=== PATIENT | male | born 1995 | race African-American/Black ===

== ENCOUNTER 2016-12-15 13:22 | Emergency (ER) | payer SELFPAY ==
[2016-12-15 13:30] VITALS: BP 122/83; PULSE 70; TEMP 98; BMI 27.6
[2016-12-15] MEDS ORDERED: DIPHTH,PERTUSS(ACELL),TET 0.5 ML DISP.SYRIN IM ONE (13:59)
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
[2016-12-15] MEDS ORDERED: HEPATITIS B IMMUNE GLOBULIN 5 ML VIAL IM ONE (14:26)
== END 2016-12-15 14:55 | disposition home or self-care (01) ==
LOC: JERFT 13:22
PROC: 3E0234Z Introduction of Serum, Toxoid and Vaccine into Muscle, Percutaneous Approach (ICD-10-PCS; principal; 2016-12-15)
PROC: 3E0234Z Introduction of Serum, Toxoid and Vaccine into Muscle, Percutaneous Approach (ICD-10-PCS; 2016-12-15)
DX: S60.473A Other superficial bite of left middle finger, initial encounter (principal); Y04.1XXA Assault by human bite, initial encounter; Y93.89 Activity, other specified; Y92.89 Other specified places as the place of occurrence of the external cause
CPT/HCPCS: 36415; 86707; 87350; 90471; 90715; 96372; 99281-25